=== PATIENT | female | born 1960 | race Caucasian/White ===

== ENCOUNTER 2018-10-22 18:51 | Emergency (ER) | payer BC, OTHER ==
[~2018-10-22] VITALS: Ht 167.6 cm; Wt 71.4 kg
[2018-10-22 19:02] VITALS: BP 123/69
[2018-10-22] MEDS ORDERED: HYDROcodone/acetaminophen 10/325mg tab PO ONE (19:35)
[2018-10-22] MEDS ORDERED: HYDROcodone/acetaminophen 5mg/325mg tablet PO ONE (19:55)
[2018-10-22] MEDS ORDERED: ketorolac tromethamine 15mg/ml inj. IM ONE (21:00)
[2018-10-22] MEDS ORDERED: TETanus/Pertussis (Acell)/Diphther VAC/PF (Tdap-Adult) 0.5ml syringe IM ONE (21:00)
--- NOTE | 2018-10-22 21:14 | NUR ---
put walking boot on patients left foot. gave crutches and showed pt how to use them. pt demonstrated she could use them. csm checked before and after
[2018-10-22] MEDS ORDERED: HYDR-3965 PO (21:17)
== END 2018-10-22 21:42 | disposition home or self-care (01) ==
LOC: ER 18:51
DX: S90.812A Abrasion, left foot, initial encounter (principal); Z88.5 Allergy status to narcotic agent; Z79.899 Other long term (current) drug therapy; M79.89 Other specified soft tissue disorders; Y93.89 Activity, other specified; Y92.89 Other specified places as the place of occurrence of the external cause; Y99.8 Other external cause status
CPT/HCPCS: 73630; 90471; 90715; 96372; 99284; J1885